=== PATIENT | male | born 2000 | race African-American/Black ===

== ENCOUNTER 2023-05-20 14:11 | Emergency (ER) | payer SELFPAY ==
[2023-05-20] MEDS ORDERED: cefTRIAXone (ROCEPHIN) 500 MG VIAL ONE (15:22)
[2023-05-20] MEDS ORDERED: Lidocaine 1% PF 5 ML VIAL ONE (15:22)
[2023-05-20] MEDS ORDERED: Azithromycin 250 MG TAB ONE (15:24)
[2023-05-20 23:19] LABS: Chlam.trachomatis by PCR,Urine Not Detected (NotDetected); GC N.gonorrhoeae PCR,UrineVOID Not Detected (NotDetected)
== END 2023-05-20 15:48 | disposition home or self-care (01) ==
LOC: ERS 14:11
DX: R36.9 Urethral discharge, unspecified (principal)
CPT/HCPCS: 87491; 87591; 96372; 99283; J0696